=== PATIENT | female | born 1990 | race Caucasian/White ===

== ENCOUNTER 2019-11-14 06:54 | Day surgery (SDC) | payer OTHER ==
[2019-11-12 13:42] VITALS: BP 128/91
[~2019-11-14] VITALS: Ht 167.6 cm; Wt 63.9 kg
[~2019-11-14 06:54] MED LIST: BUPIVACAINE/PF 0.25% ONE; LIDOCAINE 1%, 20ML ONE; NORE1TAB11 PO; SUMA100T3 PO; morphine SULFATE/PF 1 MG/ML, 10ML ONE
[2019-11-14] MEDS ORDERED: FENTANYL PF 250 MCG/5ML ONE (07:15)
[2019-11-14] MEDS ORDERED: MIDAZOLAM 1 MG/ML, 2ML ONE (07:15)
[2019-11-14] MEDS ORDERED: CEFAZOLIN 1,000 MG ONE ×2 (07:20)
[2019-11-14] MEDS ORDERED: ROPIvacaine/PF 0.5%, 30 ML ONE (07:20)
[2019-11-14] MEDS ORDERED: LACTATED RINGERS 1,000 ML IV SCH (07:21)
[2019-11-14] MEDS ORDERED: PROPOFOL 10 MG/ML, 20ML ONE (07:21)
[2019-11-14] MEDS ORDERED: DEXAMETHASONE 4 MG/ML, 1ML ONE ×2 (07:21)
[2019-11-14] MEDS ORDERED: ONDANSETRON 2MG/ML, 2ML ONE (07:21)
[2019-11-14] MEDS ORDERED: ACETAMINOPHEN 500 MG TABLET PO ONE (07:30)
[2019-11-14] MEDS ORDERED: GABAPENTIN 300 MG CAPSULE PO ONE (07:30)
[2019-11-14 08:14] LABS: HCG UR SG 1.029 (1.003-1.030)
[2019-11-14] MEDS ORDERED: LORazepam 2 MG/ML, 1ML IVPush PRN (09:00)
[2019-11-14] MEDS ORDERED: MEPERIDINE/PF 25MG/ML,1ML IVPush PRN (09:00)
[2019-11-14] MEDS ORDERED: ONDANSETRON 2MG/ML, 2ML IV PRN (09:00)
[2019-11-14] MEDS ORDERED: HYDROmorphone 2 MG/ML, 1ML IVPush PRN (09:00)
[2019-11-14] MEDS ORDERED: OXYcodone 5 MG/5 ML ORAL.SOL UDC PO PRN (09:00)
[2019-11-14] MEDS ORDERED: OXYcodone 5 MG/5 ML ORAL.SOL UDC ONE (10:56)
[2019-11-14] MEDS ORDERED: FENTANYL PF 100 MCG/2ML ONE (10:56)
[2019-11-14] MEDS: FENTANYL PF 100 MCG/2ML IV PRN ×2 (11:00→11:06)
[2019-11-14] MEDS ORDERED: MEPERIDINE/PF 25MG/ML,1ML ONE (11:30)
== END 2019-11-14 13:15 | disposition home or self-care (01) ==
LOC: OUT 06:54
PROVIDERS: ATTEND Orthopaedic Surgery
DX: S83.511A Sprain of anterior cruciate ligament of right knee, initial encounter (principal); S83.281A Other tear of lateral meniscus, current injury, right knee, initial encounter; S83.241A Other tear of medial meniscus, current injury, right knee, initial encounter; M67.261 Synovial hypertrophy, not elsewhere classified, right lower leg; G43.909 Migraine, unspecified, not intractable, without status migrainosus; Z79.899 Other long term (current) drug therapy; W01.0XXA Fall on same level from slipping, tripping and stumbling without subsequent striking against object, initial encounter; Y93.71 Activity, boxing; Y92.39 Other specified sports and athletic area as the place of occurrence of the external cause; Y99.8 Other external cause status
CPT/HCPCS: 29881; 29882; 29888; 64447; 73560; 81025; C1713; C1762; J0690; J1100; J2175; J2250; J2274; J2405; J2704; J2795; J3010; J3490; J7120; 76000